=== PATIENT | male | born 1995 | race Caucasian/White ===

== ENCOUNTER 2018-06-27 14:22 | Emergency (ER) | payer OTHER ==
[2018-06-27 14:36] VITALS: TEMP 97.5; O2SAT 97
[2018-06-27] MEDS ORDERED: KETOROLAC TROMETHAMINE 10 MG TAB PO ONE (14:43)
--- NOTE | 2018-06-27 14:45 | ED.PDOC ---
History of Present Illness - General Chief Complaint: Trauma Stated Complaint: Foreign body in left ear Time Seen by Provider: 06/27/18 14:38 Source: patient Exam Limitations: no limitations - History of Present Illness Initial Comments: Patient presents with left ear pain after a piece of hot slag from welding broke loose and landed in the ear canal. He says that his hearing on his left side is decreased. Denies previous injuries to the area. Timing/Duration: 1-3 hours Severity: mild Improving Factors: nothing Worsening Factors: nothing Associated Symptoms: denies symptoms Allergies/Adverse Reactions: Allergies Penicillins Allergy (Verified 06/27/18 14:34) Home Medications: Ambulatory Orders Ketorolac Tromethamine [Toradol Tabs] 10 mg PO Q6HRS PRN #15 tab 06/27/18 Review of Systems - Review of Systems Constitutional: States: no symptoms reported EENTM: States: see HPI Respiratory: States: no symptoms reported Cardiology: States: no symptoms reported Gastrointestinal/Abdominal: States: no symptoms reported Genitourinary: States: no symptoms reported Musculoskeletal: States: no symptoms reported Skin: States: no symptoms reported Neurological: States: no symptoms reported Endocrine: States: no symptoms reported Hematologic/Lymphatic: States: no symptoms reported Physical Exam - Physical Exam General Appearance: Alert Eye Exam: bilateral normal Ears, Nose, Throat: other - mild erythema in the left external auditory canal. TM is intact, clear, malleus visible Neck: non-tender, full range of motion, supple Respiratory: lungs clear, normal breath sounds Cardiovascular/Chest: normal peripheral pulses, regular rate, rhythm Gastrointestinal/Abdominal: normal bowel sounds, non tender, soft Progress - Progress Progress: 06/27/18 16:29 Left external acoustic meatus irrigated. Patient given Toradol 10 mg po x one in the E.R. RX for Toradol given. Care instructions given. E.R. warnings given. Questions were elicited and answered. Patient voiced understanding and agreement with the plan Departure - Departure Clinical Impression: Left ear pain Disposition: Discharge to Home or Self Care Condition: Good Departure Forms: ED Discharge - Pt. Copy, Patient Portal Self Enrollment Instructions: DI for Trauma Diet: resume usual diet Activity: increase activity as tolerated Referrals: YESSICA NEIL,SHINE Gregory [Primary Care Provider] - 1-2 Weeks Prescriptions: Ketorolac Tromethamine [Toradol Tabs] 10 mg PO Q6HRS PRN #15 tab PRN Reason: Pain Home Medications: Ambulatory Orders Ketorolac Tromethamine [Toradol Tabs] 10 mg PO Q6HRS PRN #15 tab 06/27/18 Additional Instructions: Take pain medication as prescribed if needed. You may use ice to the left ear as needed for pain. Pain should resolve within two days. If it does not, see your regular doctor or call the Ear, nose, and throat doctor that visits [facility] and get an appointment. You can reach him through the main number.
[2018-06-27] MEDS ORDERED: LIDOCAINE 1% 2 ML VIAL INJ ONE (15:45)
[2018-06-27 17:45] VITALS: BP 123/81
== END 2018-06-27 16:35 | disposition home or self-care (01) ==
LOC: ER 14:22
DX: H92.02 Otalgia, left ear (principal); Z88.0 Allergy status to penicillin